=== PATIENT | male | born 1995 | race Two or more races ===

== ENCOUNTER 2023-01-29 22:05 | Inpatient (IN) | payer OTHER ==
[2023-01-29 22:22] VITALS: BMI 29.0
[2023-01-29] MEDS ORDERED: SODIUM CHLORIDE 0.9% 500 ML INFUS.BAG IV ONE (23:10)
[2023-01-29] MEDS ORDERED: KETOROLAC TROMETHAMINE 15 MG/ML VIAL IVPUSH ONE (23:11)
[2023-01-29] MEDS ORDERED: ACETAMINOPHEN 500 MG TABLET (FP) PO ONE (23:11)
[2023-01-29] MEDS ORDERED: ONDANSETRON 4 MG/2 ML VIAL IVPUSH ONE (23:15)
[2023-01-29] MEDS ORDERED: PENICILLIN G BENZATHINE 1,200,000 UNIT/2 ML PFS IM ONE (23:22)
[2023-01-29] MEDS ORDERED: ONDANSETRON *ODT* 4 MG TABLET SL ONE (23:33)
[2023-01-29 23:36] LABS: HEMATOCRIT 41.7 % (35.4-49); RBC 5.04 M/mm3 (4.00-5.60); WHITE BLOOD COUNT 20.5 K/mm3 (4.0-10.0)
[2023-01-29 23:37] LABS: MCH 27.8 pg (25.7-33.7); MCHC 33.5 g/dl (32.0-35.9); MEAN CELL VOLUME 82.8 fl (80-96); MEAN PLT VOLUME 8.5 fl (7.5-11.1); PLATELET COUNT 220 10^3/uL (134-434); RDW 13.6 % (11.9-15.9)
[2023-01-29] MEDS ORDERED: ONDANSETRON *ODT* 4 MG TABLET ONE (23:38)
[2023-01-29 23:52] LABS: POTASSIUM 4.5 mmol/L (3.5-5.1)
[2023-01-29 23:54] LABS: CALCIUM 8.6 mg/dL (8.5-10.1)
[2023-01-29 23:55] LABS: ALBUMIN 3.7 g/dl (3.4-5.0); BLOOD UREA NITROGEN 10.4 mg/dL (7-18)
[2023-01-29 23:58] LABS: CREATININE 1.5 mg/dL (0.55-1.3)
[2023-01-30] LABS: BILIRUBIN,TOTAL 1.1 mg/dL (0.2-1); TOT PROT 7.4 g/dl (6.4-8.2)
[2023-01-30] MEDS ORDERED: ACETAMINOPHEN 1000 MG/100 ML BAG IVPB ONE (00:43)
[2023-01-30] MEDS ORDERED: SODIUM CHLORIDE 0.9% 500 ML INFUS.BAG IV ONE (00:43)
[2023-01-30 03:39] LABS: ANISOCYTOSIS 1+; MACROCYTOSIS 0
[2023-01-30] MEDS: CLINDAMYCIN 900 MG PREMIX IVPB 900 MG/50 ML BAG IVPB SCH ×3 (04:23→18:32)
[2023-01-30 08:06] LABS: EPI CELLS 1 /uL (0-25.1); HYALINE CASTS 0 /uL (0-3.1); PH,URINE 5.5 (5.0-8.0); URINE APPEARANCE CLEAR; URINE BACTERIA 1 /uL (0-1359); URINE BILIRUBIN NEGATIVE (NEGATIVE); URINE COLOR YELLOW; URINE GLUCOSE (UA) NEGATIVE (NEGATIVE); URINE KETONE TRACE (NEGATIVE); URINE LEUK ESTERASE NEGATIVE (NEGATIVE); URINE NITRITE NEGATIVE (NEGATIVE); URINE PROTEIN NEGATIVE (NEGATIVE); URINE RBC 7 /uL (0-23.9); URINE WBC 10 /uL (0-25.8)
[2023-01-30] MEDS ORDERED: ACETAMINOPHEN 325 MG TABLET (FP) PO ONE (10:30)
[2023-01-30 11:19] LABS: HEMOGLOBIN 12.7 GM/dL (11.7-16.9); MCH 27.4 pg (25.7-33.7); MCHC 33.3 g/dl (32.0-35.9); MEAN CELL VOLUME 82.2 fl (80-96); MEAN PLT VOLUME 8.8 fl (7.5-11.1); PLATELET COUNT 199 10^3/uL (134-434); RBC 4.63 M/mm3 (4.00-5.60); RDW 13.5 % (11.9-15.9); WHITE BLOOD COUNT 17.5 K/mm3 (4.0-10.0)
[2023-01-30 11:43] LABS: POTASSIUM 3.7 mmol/L (3.5-5.1)
[2023-01-30 11:45] LABS: CALCIUM 7.8 mg/dL (8.5-10.1)
[2023-01-30 11:49] LABS: CREATININE 1.6 mg/dL (0.55-1.3)
[2023-01-30 11:54] LABS: ANISOCYTOSIS 0; HELMET CELLS 0; HOWELL-JOLLY BODIES 0; MACROCYTOSIS 0; OVALOCYTE 0; ROULEAU 0; SICKELED CELLS 0; TARGET CELLS 0; TEAR DROP CELLS 0; TOXIC GRANULATION 0
[2023-01-30] MEDS ORDERED: ACETAMINOPHEN INJECTION 100 ML IVPB ONE (15:07)
[2023-01-30] MEDS: ACETAMINOPHEN 1000 MG/100 ML BAG IVPB PRN (15:49)
[2023-01-30] MEDS ORDERED: CEFTRIAXONE 2 GM/100 ML BAG IVPB ONE (20:48)
[2023-01-30] MEDS: CEFTRIAXONE 2 GM in DEXTROSE 5%-WATER 100 ML IVPB SCH (20:54)
[2023-01-30] MEDS ORDERED: PENICILLIN G BENZATHINE 1,200,000 UNIT/2 ML PFS IM ONE (23:00)
[2023-01-31] MEDS: ACETAMINOPHEN 1000 MG/100 ML BAG IVPB PRN (01:55)
[2023-01-31] MEDS ORDERED: ACETAMINOPHEN INJECTION 100 ML IVPB ONE (01:56)
[2023-01-31] MEDS: CLINDAMYCIN 900 MG PREMIX IVPB 900 MG/50 ML BAG IVPB SCH ×3 (02:15→18:25)
[2023-01-31 08:19] LABS: BASO % 0.1 % (0-2.0); EOS % 3.3 % (0-4.5); HEMATOCRIT 38.3 % (35.4-49); HEMOGLOBIN 12.5 GM/dL (11.7-16.9); LYMPH % 5.6 % (8-40); MCH 27.2 pg (25.7-33.7); MCHC 32.8 g/dl (32.0-35.9); MEAN CELL VOLUME 83.1 fl (80-96); MEAN PLT VOLUME 9.2 fl (7.5-11.1); MONO % 3.7 % (3.8-10.2); NEUT % 87.3 % (42.8-82.8); PLATELET COUNT 198 10^3/uL (134-434); RBC 4.61 M/mm3 (4.00-5.60); RDW 13.3 % (11.9-15.9)
[2023-01-31 09:01] LABS: POTASSIUM 3.6 mmol/L (3.5-5.1)
[2023-01-31 09:18] LABS: CALCIUM 8.8 mg/dL (8.5-10.1)
[2023-01-31 09:19] LABS: ALBUMIN 3.1 g/dl (3.4-5.0); BLOOD UREA NITROGEN 12.1 mg/dL (7-18); MAGNESIUM 1.9 mg/dL (1.8-2.4)
[2023-01-31 09:22] LABS: CREATININE 1.4 mg/dL (0.55-1.3); PHOSPHOROUS 2.3 mg/dL (2.5-4.9)
[2023-01-31 09:23] LABS: BILIRUBIN,TOTAL 0.7 mg/dL (0.2-1); TOT PROT 6.4 g/dl (6.4-8.2)
[2023-01-31] MEDS ORDERED: CEFTRIAXONE 2 GM/100 ML BAG IVPB ONE (11:41)
[2023-01-31] MEDS: CEFTRIAXONE 2 GM in DEXTROSE 5%-WATER 100 ML IVPB SCH (12:24)
[2023-01-31] MEDS ORDERED: ACETAMINOPHEN 325 MG TABLET (FP) PO ONE (18:45)
[2023-01-31] MEDS ORDERED: ACETAMINOPHEN 1000 MG/100 ML BAG IVPB PRN (22:58)
[2023-02-01] MEDS: CLINDAMYCIN 900 MG PREMIX IVPB 900 MG/50 ML BAG IVPB SCH ×2 (03:13→10:24)
[2023-02-01 10:04] LABS: HEMATOCRIT 37.2 % (35.4-49); HEMOGLOBIN 12.4 GM/dL (11.7-16.9); MCH 27.6 pg (25.7-33.7); MCHC 33.4 g/dl (32.0-35.9); MEAN CELL VOLUME 82.7 fl (80-96); MEAN PLT VOLUME 8.4 fl (7.5-11.1); PLATELET COUNT 219 10^3/uL (134-434); RDW 13.3 % (11.9-15.9); WHITE BLOOD COUNT 12.2 K/mm3 (4.0-10.0)
[2023-02-01 10:19] LABS: POTASSIUM 3.6 mmol/L (3.5-5.1)
[2023-02-01 10:21] LABS: CALCIUM 8.6 mg/dL (8.5-10.1)
[2023-02-01 10:22] LABS: BLOOD UREA NITROGEN 9.1 mg/dL (7-18)
[2023-02-01 10:25] LABS: CREATININE 1.3 mg/dL (0.55-1.3)
[2023-02-01] MEDS ORDERED: SODIUM CHLORIDE 500 ML IV STA (10:30)
[2023-02-01] MEDS ORDERED: BENZOCAINE/MENTH/CETYLPYRD CL 1 EACH LOZENGE MM PRN (10:31)
[2023-02-01 11:30] LABS: ANISOCYTOSIS 2+; MACROCYTOSIS 0; ROULEAU 2+
[2023-02-01 12:43] VITALS: RESP 18
[2023-02-01] MEDS: CEFTRIAXONE 2 GM in DEXTROSE 5%-WATER 100 ML IVPB SCH (15:49)
[2023-02-01] MEDS ORDERED: CLINDAMYCIN HCL 150 MG CAPSULE (FP) PO SCH (16:00)
[2023-02-01 18:07] VITALS: BP 131/71; PULSE 85; TEMP 98.4
== END 2023-02-01 18:26 | disposition home or self-care (01) | DRG 113 ==
LOC: JERFT 22:05 → JERBED 01-30 00:15 → OBSVTOIN 01-31 10:51 → J5S 01-31 17:36
PROVIDERS: ADMIT Internal Medicine; ATTEND Internal Medicine
DX: J02.0 Streptococcal pharyngitis (principal); D72.829 Elevated white blood cell count, unspecified; R00.0 Tachycardia, unspecified; R21 Rash and other nonspecific skin eruption; R50.9 Fever, unspecified
CPT/HCPCS: 0241U-QW; 36415; 71046-TC-FY; 80048; 80053; 81003; 82550; 82553; 83735; 84100; 85025; 86308; 87040; 87651; 93005; 93010; 99285-25; G0378; Q0162